=== PATIENT | female | born 1960 | race Caucasian/White ===

== ENCOUNTER 2017-06-15 16:52 | Emergency (ER) | payer BC, OTHER ==
[~2017-06-15] VITALS: Ht 172.7 cm; Wt 52.2 kg
[~2017-06-15 16:52] MED LIST: BACLOFEN10 MG ORAL; CARISOPRODOL350 MG ORAL; HYSINGLA ER40 MG PO
[2017-06-15 17:03] VITALS: BP 119/73
--- NOTE | 2017-06-15 17:15 | Emergency Room Report ---
History of Present Illness General Chief Complaint: Flu Like Symptoms Present Illness HPI 36-year-old female presents to the emergency department complaining of cough, body-aches, subjective fevers and chills, runny nose and nasal congestion x5 days. Reports sore throat. denies pain at this time. Patient reports multiple coworkers had similar symptoms just prior to her. Patient also is here with her who has the same symptoms as well. Patient reports that subjective fevers have resolved as of 2 days ago. Denies high fevers, lethargy, neck stiffness, irritability, dehydration, V/D. reports some nausea but describes more decreased appetite. denies abdominal pain. Denies Cp, Palpitations, LOC, AMS, seizures, paresthesias, or changes in Hearing or vision, no Sudden severe MARTINEZ. Allergies: Coded Allergies: PENICILLINS (Verified Allergy, Severe, 10/27/15) SULFA (SULFONAMIDE ANTIBIOTICS) (Verified Allergy, Severe, 10/27/15) Patient History Past Medical History: see triage record Past Surgical History: none Pertinent Family History: none Immunizations: UTD - no flu vaccine Reviewed Nursing Documentation: PMH: Agreed, PSxH: Agreed Review of Systems All Other Systems: negative except mentioned in HPI Physical Exam Vital Signs Date Time Temp Pulse Resp B/P (MAP) Pulse Ox O2 Delivery O2 Flow Rate FiO2 06/15/17 17:03 98.8 92 20 119/73 99 Room Air Sp02 EP Interpretation: reviewed, normal General Appearance: alert, GCS 15, non-toxic, mild distress Head: normocephalic, atraumatic Eyes: bilateral eye normal inspection, bilateral eye PERRL ENT: hearing grossly normal, normal voice, nasal congestion, pharyngeal erythema, other - no exudates Neck: full range of motion, no meningismus, no bony tend Respiratory: chest non-tender, lungs clear, normal breath sounds, no wheezing, speaking full sentences Cardiovascular #1: regular rate, rhythm, normal capillary refill Gastrointestinal: normal bowel sounds, non tender, soft Rectal: deferred Genitourinary: normal inspection Musculoskeletal: back normal, gait/station normal, normal range of motion, non- tender Neurologic: alert, oriented x3, responsive, motor strength/tone normal, sensory intact, speech normal, grossly normal Psychiatric: judgement/insight normal Skin: normal color, no rash, warm/dry, well hydrated Lymphatic: no adenopathy Medical Decision Making PA Attestation Dr. prado is my supervising Physician whom patient management has been discussed with. Diagnostic Impression: Primary Impression: Upper respiratory infection, viral ER Course 36-year-old female presents to the emergency department complaining of cough, body-aches, subjective fevers and chills, runny nose and nasal congestion x5 days. Reports sore throat. denies pain at this time. Patient reports multiple coworkers had similar symptoms just prior to her. Patient also is here with her who has the same symptoms as well. Patient reports that subjective fevers have resolved as of 2 days ago. Denies high fevers, lethargy, neck stiffness, irritability, dehydration, V/D. reports some nausea but describes more decreased appetite. denies abdominal pain. Denies Cp, Palpitations, LOC, AMS, seizures, paresthesias, or changes in Hearing or vision, no Sudden severe MARTINEZ. Ddx considered but are not limited to URI, pneumonia, PE, strep pharyngitis, meningitis. Vital signs: Pt. is afebrile, the remaining VS are WNL H&PE are most consistent with URI- no meningeal signs, oropharynx is not involved, no evidence of bacterial infection at this time. ORDERS: none required at this time, the diagnosis is clinical ED INTERVENTIONS: None required at this time. --PT. EDUCATION: Discussed antibiotic resistance with inappropriate prescribing of antibiotics for viral illnesses. Discussed signs and symptoms to indicate viral illness versus bacterial illness. DISCHARGE: At this time pt. is stable for d/c to home. Will provide printed patient care instructions, and any necessary prescriptions. Care plan and follow up instructions have been discussed with the patient prior to discharge. Last Vital Signs Date Time Temp Pulse Resp B/P (MAP) Pulse Ox O2 Delivery O2 Flow Rate FiO2 06/15/17 17:03 98.8 92 20 119/73 99 Room Air Disposition: HOME, SELF-CARE Condition: Stable Scripts Loratadine/Pseudoephedrine (CLARITIN-D 12 HOUR TABLET) 1 Each Tab.er.12h 1 TAB ORAL EVERY 12 HOURS for 10 Days, #20 TAB Prov: Felicita Pena P.A. 06/15/17 Guaifenesin (Guaifenesin) 1,200 Mg Tab.er.12h 1200 MG PO BID, #20 TAB Prov: Felicita Pena 06/15/17 Codeine/Promethazine Hcl* (PROMETHAZINE-CODEINE SYRUP*) 118 Ml Syrup 5 ML ORAL Q6H Y for For Cough, #118 ML 0 Refills Prov: Felicita Pena 06/15/17 Lidocaine HCl 2% Viscous (Lidocaine HCl 2% Viscous) 100 Ml Solution 15 ML ORAL QID Y for For Pain, #100 ML Prov: Felicita Pena 06/15/17 Patient Instructions: Upper Respiratory Infection, Adult, Qizr-ue-Chur Additional Instructions: Take medications as directed. Follow up with a Primary Care Provider in 3-5 days, even if your symptoms have resolved. --Please review list of primary care clinics, if you do not already have a primary care provider Return sooner to ED if new symptoms occur, or current symptoms become worse. Do not drink alcohol, drive, or operate heavy machinery while taking Cough Syrup as this may cause drowsiness. - Please note that this Emergency Department Report was dictated using [employer] director technology software, occasionally this can lead to erroneous entry secondary to interpretation by the dictation equipment. Felicita Pena Jun 15, 2017 17:15
[2017-06-15] MEDS ORDERED: PROMETHAZINE-C118 M1 ORAL (17:36)
[2017-06-15] MEDS ORDERED: GUAIFENESIN1200 MG PO (17:36)
[2017-06-15] MEDS ORDERED: CLARITIN-D 121 EAC1 ORAL (17:36)
[2017-06-15] MEDS ORDERED: LIDOCAINE VISC100 ML ORAL (17:36)
[2017-06-15 17:50] VITALS: BP 119/73
[2017-06-16] MEDS ORDERED: CLARITIN-D 121 EAC1 ORAL (15:00)
[2017-06-16] MEDS ORDERED: GUAIFENESIN1200 MG PO (15:00)
[2017-06-16] MEDS ORDERED: LIDOCAINE VISC100 ML ORAL (15:00)
[2017-06-16] MEDS ORDERED: PROMETHAZINE-C118 M1 ORAL (15:00)
== END 2017-06-15 17:50 | disposition home or self-care (01) ==
LOC: EMR 17:50
DX: J06.9 Acute upper respiratory infection, unspecified (principal); B34.9 Viral infection, unspecified; Z88.0 Allergy status to penicillin; Z88.2 Allergy status to sulfonamides
CPT/HCPCS: 99283

== ENCOUNTER 2017-06-27 12:58 | Emergency (ER) | payer OTHER ==
[~2017-06-27] VITALS: Ht 175.3 cm; Wt 55.3 kg
[~2017-06-27 12:58] MED LIST changes: +CLARITIN-D 121 EAC1 ORAL; +GUAIFENESIN1200 MG PO; +LIDOCAINE VISC100 ML ORAL; +PROMETHAZINE-C118 M1 ORAL
[2017-06-27 13:10] VITALS: BP 128/67
[2017-06-27] MEDS ORDERED: AZITHROMYCIN250 MG ORAL (13:32)
[2017-06-27] MEDS ORDERED: PROMETHAZINE-C118 M1 ORAL (13:32)
--- NOTE | 2017-06-28 14:25 | Emergency Room Report ---
History of Present Illness General Chief Complaint: Flu Like Symptoms Source: Patient Present Illness HPI 56-year-old female presents ED for evaluation. Patient states she's had a cough for the last 3 weeks. Productive with greenish phlegm. Notes bodyaches. Afebrile in triage. States her initially had the symptoms in past and onto her. He is also coughing persistently as well. Denies recent travel. Denies smoking or drug use. Denies chest pain or shortness of breath. No other aggravating or leading factors. Denies any other associated symptoms Allergies: Coded Allergies: PENICILLINS (Verified Allergy, Severe, 10/27/15) SULFA (SULFONAMIDE ANTIBIOTICS) (Verified Allergy, Severe, 10/27/15) Patient History Past Medical History: none Past Surgical History: none Pertinent Family History: none Social History: Denies: smoking, alcohol use, drug use Now: No Immunizations: UTD Reviewed Nursing Documentation: PMH: Agreed, PSxH: Agreed Nursing Documentation-PMH Past Medical History: No History, Except For Review of Systems All Other Systems: negative except mentioned in HPI Physical Exam Vital Signs Date Time Temp Pulse Resp B/P (MAP) Pulse Ox O2 Delivery O2 Flow Rate FiO2 06/27/17 13:05 98.1 82 18 128/67 98 Room Air Sp02 EP Interpretation: reviewed, normal General Appearance: no apparent distress, alert, GCS 15, non-toxic Head: normocephalic, atraumatic Eyes: bilateral eye normal inspection, bilateral eye PERRL ENT: hearing grossly normal, normal pharynx, no angioedema, normal voice Neck: full range of motion, supple/symm/no masses Respiratory: chest non-tender, lungs clear, normal breath sounds, speaking full sentences Cardiovascular #1: regular rate, rhythm, no edema Cardiovascular #2: 2+ carotid (R), 2+ carotid (L), 2+ radial (R), 2+ radial (L) , 2+ dorsalis pedis (R), 2+ dorsalis pedis (L) Gastrointestinal: normal bowel sounds, non tender, soft, non-distended, no guarding, no rebound Rectal: deferred Genitourinary: normal inspection, no CVA tenderness Musculoskeletal: back normal, gait/station normal, normal range of motion, non- tender Neurologic: alert, oriented x3, responsive, motor strength/tone normal, sensory intact, speech normal Psychiatric: judgement/insight normal, memory normal, mood/affect normal, no suicidal/homicidal ideation Reflexes: 3+ bicep (R), 3+ bicep (L), 3+ tricep (R), 3+ tricep (L), 3+ knee (R) , 3+ knee (L) Skin: normal color, no rash, warm/dry, well hydrated Lymphatic: no adenopathy Medical Decision Making Diagnostic Impression: Primary Impression: Atypical pneumonia ER Course Hospital Course 56-year-old female presents ED complaining of bodyaches and cough x3 weeks Differential diagnoses include: URI, pharyngitis, otitis media, asthma Clinical course Patient placed on stretcher. After initial history, physical exam reveals a female in no acute distress. Bilateral TM unremarkable. No pharyngeal erythema. No tonsillar exudates. No lymphadenopathy. lungs clear. abdomen soft. Presentation consistent with atypical pneumonia. Given presentation, i will prescribe Zpack (allergy to PCN) Diagnosis - atypical pneumonia Stable and discharged home with Rx Zpack. Instructed to followup with PMD. Return to ED if symptoms recur or worsen Last Vital Signs Date Time Temp Pulse Resp B/P (MAP) Pulse Ox O2 Delivery O2 Flow Rate FiO2 06/27/17 13:10 98.1 72 18 128/67 98 Room Air Status: improved Disposition: HOME, SELF-CARE Condition: Stable Scripts Azithromycin* (ZITHROMAX*) 250 Mg Tablet 250 MG ORAL DAILY, #6 TAB 0 Refills Take two tablets by mouth today, then take one tablet by mouth daily for four days Prov: VIKAS STEVENSON M.D. 06/27/17 Codeine/Promethazine Hcl* (PROMETHAZINE-CODEINE SYRUP*) 118 Ml Syrup 5 ML ORAL Q6H Y for For Cough, #118 ML 0 Refills Prov: VIKAS STEVENSON M.D. 06/27/17 Referrals: [facility],REFERRING (PCP) Patient Instructions: Community-Acquired Pneumonia, Adult, [id number] VIKAS STEVENSON M.D. Jun 28, 2017 14:25
== END 2017-06-27 14:10 | disposition home or self-care (01) ==
LOC: EMR 13:30
DX: J18.9 Pneumonia, unspecified organism (principal); Z88.0 Allergy status to penicillin; Z88.2 Allergy status to sulfonamides
CPT/HCPCS: 99283

== ENCOUNTER 2017-08-05 20:22 | Emergency (ER) | payer OTHER ==
[~2017-08-05] VITALS: Ht 175.3 cm; Wt 53.5 kg
[~2017-08-05 20:22] MED LIST changes: +AZITHROMYCIN250 MG ORAL
[2017-08-05 20:35] VITALS: BP 110/78
--- NOTE | 2017-08-05 21:15 | Emergency Room Report ---
History of Present Illness General Chief Complaint: Multiple Trauma/Fall Source: Patient Present Illness HPI Patient is a 56-year-old female who presented after increased facial pain after a fall. Patient reported having prior history of being in pain management for fibromyalgia and chronic pain. The patient takes medications for pain as well as soma. She was noted to have sustained a laceration to the left side of her face. She reports having pain to her usual pain locations which include her extremities as well as her face. She reported having taken soma prior to arrival Allergies: Coded Allergies: PENICILLINS (Verified Allergy, Severe, 10/27/15) SULFA (SULFONAMIDE ANTIBIOTICS) (Verified Allergy, Severe, 10/27/15) Patient History Past Medical History: see triage record Last Menstrual Period: NA Now: No Reviewed Nursing Documentation: PMH: Agreed, PSxH: Agreed Review of Systems All Other Systems: negative except mentioned in HPI Physical Exam Vital Signs Date Time Temp Pulse Resp B/P (MAP) Pulse Ox O2 Delivery O2 Flow Rate FiO2 08/05/17 20:27 87.0 87 18 105/73 99 Room Air 87.1 Sp02 EP Interpretation: reviewed, normal General Appearance: normal inspection, well appearing, no apparent distress, alert, GCS 15 Head: atraumatic ENT: normal ENT inspection, hearing grossly normal, normal voice Neck: normal inspection, full range of motion, supple, no bony tend Respiratory: normal inspection, lungs clear, normal breath sounds, no respiratory distress, no retraction, no wheezing Cardiovascular #1: regular rate, rhythm, no edema Gastrointestinal: normal inspection, normal bowel sounds, non tender, soft, no guarding, no hernia Genitourinary: no CVA tenderness Musculoskeletal: normal inspection, back normal, normal range of motion Neurologic: normal inspection, alert, responsive, speech normal Psychiatric: normal inspection, judgement/insight normal, mood/affect normal Skin: normal inspection, normal color, no rash Procedures Laceration/Wound Repair Laceration/Wound Repair : Consent: Verbal Wound Location: face Wound Length (cm): 1 Wound Explored: clean Irrigated w/ Saline (ccs): 30 Betadine Prep?: Yes Wound Repaired With: Dermabond Patient Tolerated: Well Complications: None Medical Decision Making Diagnostic Impression: Primary Impression: Laceration ER Course Patient presented after fall. Differential diagnosis included was not limited to neck fracture, CVA, close head injury, syncopal episode, basilar ischemia. The patient noted have a small laceration to the left side her face with associated soft tissue swelling. The patient appear to be somewhat overmedicated. The patient was given ice pack. The patient was noted been pain management and she was not prescribe pain medications at this time. The patient presented somewhat overmedicated. Patient is advised to return if any worsening condition or if any changes in status that are concerning. This report is dictated with [employer] intern software which may occasionally lead to discrepancies related to use of this software. Last Vital Signs Date Time Temp Pulse Resp B/P (MAP) Pulse Ox O2 Delivery O2 Flow Rate FiO2 08/05/17 20:27 87.0 87 18 105/73 99 Room Air 87.1 Status: improved Disposition: HOME, SELF-CARE Condition: Stable Khanh Nunez Aug 05, 2017 21:15
[2017-08-05 22:50] VITALS: BP 120/74
[2017-08-05 23:00] VITALS: BP 120/74
--- NOTE | 2017-08-06 09:42 | Diagnostic Imaging Report ---
Indication: Headache Technique: Contiguous 5 mm thick transaxial imaging of the head obtained in a Siemens Sensation [address] scanner. Soft tissue and bone windows generated. Automatic Exposure Control was utilized. Total Dose length Product (DLP): 1453.[address] Dose Index Volume (CTDIvol): 70.38 mGy Comparison: none Findings: The size and configuration of the cortical sulci, basal cisterns, and ventricles are within normal limits for age. There is no mass effect, midline shift, or edema identified. There is no evidence of acute hemorrhage or abnormal intra-axial or extra-axial fluid collections. The bones and soft tissues are unremarkable. Impression: No mass effect, edema or acute bleed. [facility] has communicated the preliminary results to the Emergency Department. Their findings are largely concordant with this report. The CT scanner at [facility] is accredited by the [employer] and the scans are performed using dose optimization techniques as appropriate to a performed exam including Automatic Exposure control.
== END 2017-08-05 23:00 | disposition home or self-care (01) ==
LOC: EMR 20:58
DX: S01.81XA Laceration without foreign body of other part of head, initial encounter (principal); W19.XXXA Unspecified fall, initial encounter; Y92.9 Unspecified place or not applicable; Z88.2 Allergy status to sulfonamides; R51 Headache; Z88.0 Allergy status to penicillin
CPT/HCPCS: 70450; 99283

== ENCOUNTER 2017-12-27 10:49 | Emergency (ER) | payer BC, OTHER ==
[~2017-12-27] VITALS: Ht 172.7 cm; Wt 54.4 kg
[2017-12-27] MEDS ORDERED: KLONOPIN1 MG ORAL (11:03)
[2017-12-27 11:07] VITALS: BP 113/71
[2017-12-27] MEDS ORDERED: Lidocaine 2% MPF 5ml Vial INJ ONE (12:00)
--- NOTE | 2017-12-27 13:23 | Emergency Room Report ---
History of Present Illness General Chief Complaint: Upper Extremity Injury Source: Patient Present Illness HPI This patient c/o dislocation pinky this am. The patient takes Soma etc. and is not the best historian. Her says there is no other issue/trauma. No head injury. No chest pain, no nausea, no vomiting, no diarrhea, no abdominal pain, no syncope, LOC, dizziness, lightheadedness, headache. Allergies: Coded Allergies: PENICILLINS (Verified Allergy, Severe, 10/27/15) SULFA (SULFONAMIDE ANTIBIOTICS) (Verified Allergy, Severe, 10/27/15) Patient History Last Menstrual Period: years ago Review of Systems Constitutional: Denies: fever Eye: Denies: acuity changes Respiratory: Denies: cough, shortness of breath Cardiovascular: Denies: chest pain Gastrointestinal: Denies: nausea, vomiting Skin: Denies: rash Neurological: Denies: headache Physical Exam Vital Signs Date Time Temp Pulse Resp B/P (MAP) Pulse Ox O2 Delivery O2 Flow Rate FiO2 12/27/17 10:59 80 18 113/71 97 Room Air 12/27/17 11:07 97.4 97.4 General Appearance: well appearing, no apparent distress Head: normocephalic, atraumatic ENT: hearing grossly normal, normal voice Neck: full range of motion, supple Respiratory: no respiratory distress, speaking full sentences Musculoskeletal: other - dislocation fifth MCP (right) Neurologic: alert, normal gait Psychiatric: mood/affect normal Skin: no rash Procedures Joint Reduction Joint Reduction : Consent: Emergent Joint Reduction Site: other - fifth finger Procedural Sedation: No Reduction Attempts: One Pre-Procedure NV Exam: Yes Post-Procedure NV Exam: Yes Post Joint Reduction Film: joint reduced Patient Tolerated: Well Complications: None Medical Decision Making Diagnostic Impression: Primary Impression: Dislocation, finger closed Last Vital Signs Date Time Temp Pulse Resp B/P (MAP) Pulse Ox O2 Delivery O2 Flow Rate FiO2 12/27/17 11:07 97.4 84 18 113/71 97 Room Air 97.4 Disposition: HOME, SELF-CARE Condition: Stable Referrals: NOT CHOSEN [facility],REFERRING (PCP) Patient Instructions: Finger or Thumb Dislocation Dani Starr M.D. Dec 27, 2017 13:23
[2017-12-27 13:40] VITALS: BP 121/79
[2017-12-27 13:45] VITALS: BP 121/79
--- NOTE | 2017-12-27 14:41 | Diagnostic Imaging Report ---
Indication: Trauma Technique: 3 views of the right fifth finger Comparison: none Findings: The proximal interphalangeal joint is severely subluxed medially, nearly completely dislocated, and there is severe medial angulation. No acute fractures. No dislocations. Impression: Severe subluxation bordering on dislocation of the fifth proximal interphalangeal joint. No definite associated fracture
--- NOTE | 2017-12-27 14:45 | Diagnostic Imaging Report ---
Indication: Status post reduction of previously demonstrated finger dislocation Technique: To views of the right fifth finger Comparison: 2 hours earlier Findings: Interim reduction of previously severely subluxed/borderline dislocated proximal interphalangeal joint, now with satisfactory anatomic alignment. No definite underlying fracture demonstrated. No other significant abnormality Impression: Satisfactory reduction of previously demonstrated fifth proximal interphalangeal joint subluxation/dislocation
== END 2017-12-27 13:45 | disposition home or self-care (01) ==
LOC: EMR 11:38
DX: S63.286A Dislocation of proximal interphalangeal joint of right little finger, initial encounter (principal); W19.XXXA Unspecified fall, initial encounter; Y92.9 Unspecified place or not applicable; Z88.0 Allergy status to penicillin; Z88.2 Allergy status to sulfonamides
CPT/HCPCS: 99284